=== PATIENT | female | born 1990 ===

== ENCOUNTER 2024-08-18 10:58 | Outpatient (AMB) | payer MEDICAID, SELFPAY ==
[2024-08-18 11:18] VITALS: BP 135/86; PULSE 75; RESP 18; TEMP 36.4; O2SAT 98; BMI 35.8
--- NOTE | 2024-08-18 11:18 | AMB.GYNCLNOT ---
Vital Signs 08/18/24 11:18 Height 1.65 m Height Method Stated Weight 97.579 kg Weight Measurement Method Standing Scale BMI 35.8 BP 135/86 H Blood Pressure Source Automatic Cuff Blood Pressure Location Left Upper Arm Position Sitting Respiration 18 Pulse 75 Pulse Source Monitor Temp 97.6 F Temp Source Oral Pulse Oximetry (%) 98 Oxygen Delivery Method Room Air Allergies/Home Meds Allergies & Medications Allergies No Known Allergies Allergy (Verified 08/18/24 11:19) Medication Reconciliation No Known Home Medications 08/18/24 [History Confirmed 08/18/24] Intake Visit Data Collection New Patient or Established: Established Patient (seen at [facility] within 3 years) Reason for Visit:: Referral from primary care provider for gynecological evaluation in a patient with special needs Seen by Clinical Staff ONLY (RN/MA): No Assessment Consultant Required: No Do You Feel Safe at Home: Yes Authorities Contacted: N/A PCP or OBGYN visit in last 3 months: No Hx Now: No Are you currently on any form of Control: No Last menstrual period: 08/08/24 Pain Present Currently: No Pain Scale Used: Berrios-Claire/Numerical Pain scale:: 0 Smoking Status Smoking Status: Never 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 1. Little interest or pleasure in doing things: not at all 2. Feeling down, depressed, or hopeless: not at all Total score: 0 PHQ-9 3. Trouble falling or staying asleep, or sleeping too much: Not at all 4. Feeling tired or having little energy: Not at all 5. Poor appetite or overeating: Not at all 6. Feeling bad about yourself - or that you are a failure or have let yourself or your family down: Not at all 7. Trouble concentrating on things, such as reading the newspaper or watching television: Not at all 8. Moving or speaking so slowly that other people could have noticed? - Or the opposite - being so fidgety or restless that you have been moving around a lot more than usual: not at all 9. Thoughts that you would be better off or of hurting yourself in some way: Not at all Total score: 0 If you checked off any problems, how difficult have these problems made it for you to do your work, take care of things at home, or get along with other people?: not difficult at all Source: Developed by Drs. Jus Murphy, Shivani Mccormick, Zay Smith and colleagues, with an educational sandee from [employer]. Depression screen completed yes Social History Living Situation History Marital Status: Single Lives With: Family Housing: House Tobacco History Smoking Status: Never smoker Second Hand Smoke Exposure: No Alcohol History Alcohol Intake: Never Domestic Abuse History Do You Feel Safe at Home: Yes Past Medical History Past Medical History Have you ever been diagnosed with any of the following: Cardiology Problems Congestive Heart Failure: No Respiratory Problems Chronic Obstructive Pulmonary Disease (COPD): No Genital/Urinary Problems Renal Disease: No Endocrine Problems Diabetes Mellitus Type 1: No Diabetes Mellitus Type 2: No History of Present Illness HPI Narrative Tanika Rose is a 34-year-old female with a history of multiple medical problems and special needs who was referred by her primary care provider from [facility] for gynecological evaluation. The patient has never been sexually active and has a history of unspecified mental delay, diabetes, and hypertension. The patient's mother accompanies her to the appointment. There are concerns about the patient's ability to tolerate a pelvic exam, which might be extremely painful for her due to her special needs. Given that the patient has never been sexually active, her risk for acquiring HPV is considered extremely low, and consequently, her risk for cervical cancer is also very low. The patient is currently on multiple medications, including psychiatric medications, though specific details about these medications were not provided. Due to the patient's medical complexity and special needs, any potential gynecological procedures, such as a pap smear, would need to be performed under general anesthesia in a hospital operating room setting if the family chooses to pursue further evaluation. Obstetric History - GTPAL: G0 T0 L0 - Patient has never been sexually active Medical History - Unspecified mental delay - Diabetes - Hypertension Medications and Supplements - Psychiatric medications - Diabetes medications - Hypertension medications Social History - Sexual History: Never sexually active - Living Situation: Lives with mother (patient was brought in by her mother) Review of Systems Review of Systems Systems Reviewed: All systems reviewed, normal except as documented Exam Narrative Physical exam: Exam deferred due to patient's mental condition Assessment & Plan Diagnosis / Problem List (1) Well woman exam (no gynecological exam): Status: Acute Plan Tanika Rose, a 34-year-old female with special needs, multiple medical problems including unspecified mental delay, diabetes, and hypertension, was referred by her primary care provider for gynecological evaluation. Gynecological evaluation in special needs patient Assessment: Patient has never been sexually active and has special needs, which may make a pelvic exam extremely painful and difficult to tolerate. Given her lack of sexual activity, she is considered extremely low-risk for acquiring HPV, which is responsible for 99% of cervical cancers. Therefore, her risk of cervical cancer is assessed as very low, and a Pap smear is not deemed mandatory at this time. Plan: - Defer routine Pap smear due to low risk and potential difficulty with examination - If family wishes to pursue further evaluation: - Recommend pelvic exam under general anesthesia in hospital operating room - Follow up as needed based on family's decision Office Procedures OB Clinic LOC & Office Proc's Nursing/Assessment Patient Status: Initial/New Patient OB Clinic Nursing Assessment: BP Monitoring, Medication Reconciliation, Update PMH in EMR and Vital Signs OB Clinic Coordination of Care: Consent,records obtained, informed consent, Education Simp Pt/Fam, Lab and Imaging orders and Staff clarify orders New Patient Charge New Patient Point Assignment: [id number] New Patient Point Charge: GRAIN RECEIVER Level 3 ([id number])
== END 2024-08-18 11:22 | disposition home or self-care (01) ==
LOC: HODSOBC 10:58
PROVIDERS: PCP Internal Medicine; Referring Provider Internal Medicine; Supervising Provider Obstetrics & Gynecology; Visit Provider Obstetrics & Gynecology
DX: Z01.419 Encounter for gynecological examination (general) (routine) without abnormal findings (principal); F99 Mental disorder, not otherwise specified; E11.9 Type 2 diabetes mellitus without complications; I10 Essential (primary) hypertension
CPT/HCPCS: 99203; G0463